=== PATIENT | male | born 1995 | race Caucasian/White ===

== ENCOUNTER 2019-05-30 23:57 | Emergency (ER) | payer BC, OTHER ==
--- NOTE | 2019-05-31 00:21 | EDM.PDOC ---
ED HPI GENERAL MEDICAL PROBLEM - General Chief Complaint: Upper Extremity Injury/Pain Stated Complaint: HAND INJURY Time Seen by Provider: 05/31/19 00:19 Source of Information: Reports: Patient History Limitations: Reports: No Limitations - History of Present Illness INITIAL COMMENTS - FREE TEXT/NARRATIVE: 23 yo male who punched wall. Complains of moderate pain in the third knuckle. 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 ED EXAM, GENERAL - Physical Exam Exam: See Below Free Text/Narrative:: Mild deformity of the eight 3rd knuckle. Tenderness. Full ROM Exam Limited By: No Limitations General Appearance: Alert Course - Vital Signs Last Recorded V/S: Last Vital Signs Temp 98.4 F 05/31/19 00:05 Pulse 96 05/31/19 00:05 Resp 18 05/31/19 00:05 BP 122/77 05/31/19 00:05 Pulse Ox 98 05/31/19 00:05 - Orders/Labs/Meds Orders: Active Orders 24 hr Category Date Time Status Hand Comp Min 3V Rt [CR] Stat Exams 05/31/19 00:15 Taken Departure - Departure Time of Disposition: 01:08 Disposition: Home, Self-Care 01 Condition: Good Clinical Impression: Soft tissue injury of hand - Discharge Information Forms: ED Department Discharge - Problem List & Annotations (1) Soft tissue injury of hand SNOMED Code(s): 049880432, 059545212 Code(s): S69.90XA - UNSP INJURY OF UNSP WRIST, HAND AND FINGER(S), INIT ENCNTR Status: Acute Current Visit: Yes - Problem List Review Problem List Initiated/Reviewed/Updated: Yes - My Orders Last 24 Hours: My Active Orders 05/31/19 00:15 Hand Comp Min 3V Rt [CR] Stat - Assessment/Plan Last 24 Hours: My Active Orders 05/31/19 00:15 Hand Comp Min 3V Rt [CR] Stat Plan: I personally reviewed the Xray,did not see any abnormality. FRED dias. MIKEL
--- NOTE | 2019-05-31 11:24 | CR ---
INDICATION: Injury, hit wall. RIGHT HAND: Three views of the right hand were obtained, 05/31/19 - no comparisons. A fracture, dislocation, or other significant bone or joint abnormality was not identified. If an occult fracture site is suspected clinically, re-examination in 10-14 days may be helpful. MTDD
== END 2019-05-31 01:15 | disposition home or self-care (01) ==
LOC: FB.ED 23:57
DX: S69.91XA Unspecified injury of right wrist, hand and finger(s), initial encounter (principal); W22.01XA Walked into wall, initial encounter
CPT/HCPCS: 73130-RT; 99283-25